=== PATIENT | male | born 1975 | race Caucasian/White ===

== ENCOUNTER 2018-04-20 08:57 | Emergency (ER) | payer OTHER ==
[2018-04-20 09:19] VITALS: BP 119/75
--- NOTE | 2018-04-20 09:30 | UC ---
Throat Pain/Nasal [facility] HPI - HPI Summary HPI Summary: sore throat and nasal congestion for the past week, with increase in facial pressure and headache today. Fatigued due to illness. Hx of sinusitis approximately 6 months ago. Cough today, no ear pain. - History of Current Complaint Chief Complaint: UCGeneralIllness Stated Complaint: SINUSES, SORE THROAT, HEADACHE Time Seen by Provider: 04/20/18 09:20 Hx Obtained From: Patient Onset/Duration: Gradual Onset, Lasting Weeks - 1 Severity: Moderate Pain Intensity: 4 Cough: Nonproductive Associated Signs & Symptoms: Positive: Sinus Discomfort - Epiglottits Risk Factors Epiglottis Risk Factors: Negative - Allergies/Home Medications Allergies/Adverse Reactions: Allergies Allergy/AdvReac Type Severity Reaction Status Date / Time No Known Allergies Allergy Verified 04/20/18 09:14 Home Medications: Home Medications traZODone TAB* [Desyrel TAB*] 50 mg PO BEDTIME 04/20/18 [History Confirmed 04/20] PMH/Surg Hx/FS Hx/Imm Hx Previously Healthy: Yes Psychological History: Other - 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 Other Psychological History: sleep phase disorder - Surgical History Surgical History: Yes Surgery Procedure, Year, and Place: Right Wrist Ganglion Cyst - Family History Known Family History: Positive: Other - mother has had strokes. - Social History Occupation: Employed Full-time - long distance driving. Alcohol Use: None Substance Use Type: None Smoking Status (MU): Never Smoked Tobacco Review of Systems Constitutional: Fatigue ENT: Sore Throat, Nasal Discharge, Sinus Pain/Tenderness Is Patient Immunocompromised?: No All Other Systems Reviewed And Are Negative: Yes Physical Exam Triage Information Reviewed: Yes Appearance: No Pain Distress, Ill-Appearing - looks mildly unwell Vital Signs: Initial Vital Signs Temp 98.3 F 04/20/18 09:12 Pulse 78 04/20/18 09:12 Resp 16 04/20/18 09:12 BP 119/75 04/20/18 09:12 Pulse Ox 99 04/20/18 09:12 Vital Signs Reviewed: Yes Eye Exam: Other - FLORY, no photophobia, mild ade-orbital swelling. Eyes: Positive: Conjunctiva Clear ENT: Positive: Pharyngeal erythema, Sinus tenderness - frontal and maxillary sinuses., Other Dental Exam: Normal Neck: Positive: Supple, Nontender, No Lymphadenopathy Respiratory: Positive: Lungs clear, Normal breath sounds Cardiovascular: Positive: RRR, No Murmur Musculoskeletal Exam: Normal Neurological Exam: Normal Psychological Exam: Normal Skin Exam: Normal Throat Pain/Nasal Course/Dx - Course Course Of Treatment: augmentin and flonase for sinusitis. - Differential Dx/Diagnosis Differential Diagnosis/HQI/PQRI: Laryngitis, Otitis Media, Sinusitis, URI Provider Diagnoses: acute pansinusitis. Discharge - Sign-Out/Discharge Documenting (check all that apply): Discharge/Admit/Transfer - Discharge Plan Condition: Stable Disposition: HOME Prescriptions: Amoxicillin/Clavulanate TAB* [Augmentin TAB 875*] 875 mg PO BID #20 tab Patient Education Materials: Sinusitis (ED) Referrals: Hasmukh White MD [Primary Care Provider] - Additional Instructions: Begin augmentin for treatment of sinusitis; ensure that you take the full course of it. Diarrhea can be a side effect, and you can take it with food. I suggest use of over the counter Flonase (steroid nasal spray) to help to relieve sinus congestion. - Billing Disposition and Condition Condition: STABLE Disposition: HOME
== END 2018-04-20 09:43 | disposition home or self-care (01) ==
LOC: UCCORT 08:57
DX: J01.40 Acute pansinusitis, unspecified (principal); G47.26 Circadian rhythm sleep disorder, shift work type
CPT/HCPCS: 99202; G0463

== ENCOUNTER 2019-05-28 08:58 | Emergency (ER) | payer OTHER ==
[2019-05-28 09:39] VITALS: BP 120/85
--- NOTE | 2019-05-28 09:58 | UC ---
Throat Pain/Nasal [facility] HPI - HPI Summary HPI Summary: C/O cough x 2 weeks. Had sinus pain last week. Severe sore throat since yesterday with subjective fever/ sweats last night. Dry cough. No SOB. - History of Current Complaint Chief Complaint: UCGeneralIllness Stated Complaint: ST,COUGH,FEVER Time Seen by Provider: 05/28/19 09:44 Hx Obtained From: Patient Onset/Duration: Gradual Onset, Lasting Weeks - 2, Worse Since - yesterday Severity: Moderate Pain Intensity: 0 Cough: Nonproductive Associated Signs & Symptoms: Positive: Nasal Discharge - post nasal drip, Fever. Negative: Sinus Discomfort - Allergies/Home Medications Allergies/Adverse Reactions: Allergies Allergy/AdvReac Type Severity Reaction Status Date / Time No Known Allergies Allergy Verified 05/28/19 09:07 Home Medications: Home Medications Ascorbic Acid TAB* [Vitamin C TAB*] 500 mg PO DAILY 05/28/19 [History Confirmed 05/28/19] PMH/Surg Hx/FS Hx/Imm Hx Previously Healthy: Yes - Surgical History Surgical History: Yes Surgery Procedure, Year, and Place: Right Wrist Ganglion Cyst - Family History Known Family History: Positive: Other - mother has had strokes. Negative: Cardiac Disease, Hypertension - Social History Occupation: Employed Full-time Lives: With Family Alcohol Use: None Substance Use Type: None Smoking Status (MU): Never Smoked Tobacco Review of Systems All Other Systems Reviewed And Are Negative: Yes Constitutional: Positive: Fever ENT: Positive: Sore Throat, Nasal Discharge Respiratory: Positive: Cough Is Patient Immunocompromised?: No Physical Exam Triage Information Reviewed: Yes Appearance: No Pain Distress, Well-Nourished, Ill-Appearing - mild Vital Signs: Initial Vital Signs Temp 98.3 F 05/28/19 09:08 Pulse 82 05/28/19 09:08 Resp 18 05/28/19 09:08 BP 120/85 05/28/19 09:08 Pulse Ox 99 05/28/19 09:08 Vital Signs Reviewed: Yes Eyes: Positive: Conjunctiva Clear ENT: Positive: Nasal congestion - with allergic changes, TMs normal, Tonsillar swelling - mild. Negative: Pharyngeal erythema Neck exam: Normal Respiratory: Positive: Lungs clear, Wheezing - expiratory wheezing with coughing only. Diagnostics - Laboratory Lab Results: Rapid strep is negative Throat Pain/Nasal Course/Dx - Differential Dx/Diagnosis Differential Diagnosis/HQI/PQRI: Pharyngitis, Sinusitis, URI Provider Diagnosis: Viral syndrome, Allergic rhinitis Discharge - Sign-Out/Discharge Documenting (check all that apply): Patient Departure All imaging exams completed and their final reports reviewed: No Studies - Discharge Plan Condition: Stable Disposition: HOME Prescriptions: Montelukast Sodium TAB* [Singulair 10 MG TAB*] 10 mg PO BEDTIME #30 tab predniSONE TAB* [Deltasone TAB*] 50 mg PO DAILY #7 tab Patient Education Materials: Allergies (ED), Prednisone (By mouth), Montelukast (By mouth) Referrals: Hasmukh White MD [Primary Care Provider] - - Billing Disposition and Condition Condition: STABLE Disposition: Home
== END 2019-05-28 10:18 | disposition home or self-care (01) ==
LOC: UCCORT 08:58
DX: B34.9 Viral infection, unspecified (principal); J30.9 Allergic rhinitis, unspecified
CPT/HCPCS: 87651; 99212; G0463